=== PATIENT | male | born 1970 | race African-American/Black ===

== ENCOUNTER 2017-08-30 22:20 | Emergency (ER) | payer MEDICAID ==
[~2017-08-30] VITALS: Ht 175.3 cm; Wt 73.0 kg
[2017-08-30] MEDS ORDERED: IPRATROPIUM BROMIDE (0.02%) 0.5MG/2.5ML NEB HHN STA (22:39)
[2017-08-30] MEDS ORDERED: PREDNISONE 20MG TABLET PO STA (22:39)
[2017-08-30] MEDS: ALBUTEROL (0.083%) 2.5MG/3ML NEB HHN SCH ×3 (22:56→23:24)
[2017-08-31 00:10] VITALS: BP 121/68
== END 2017-08-31 02:02 | disposition home or self-care (01) ==
LOC: ER 22:35
DX: J44.1 Chronic obstructive pulmonary disease with (acute) exacerbation (principal); F31.9 Bipolar disorder, unspecified; F17.210 Nicotine dependence, cigarettes, uncomplicated; Z71.6 Tobacco abuse counseling
CPT/HCPCS: 71045; 83036; 94640; 99285; J7512; J7611; Z7610

== ENCOUNTER 2021-02-15 03:46 | Emergency (ER) | payer OTHER, MEDICAID ==
[~2021-02-15] VITALS: Ht 182.9 cm; Wt 81.0 kg
[2021-02-15] MEDS ORDERED: ALBUTEROL (0.083%) 2.5MG/3ML NEB HHN STA (04:49)
[2021-02-15] MEDS ORDERED: PREDNISONE 20MG TABLET PO STA (04:49)
[2021-02-15 05:11] LABS: HEMATOCRIT. 50.7 % (42.0-52.0); HEMOGLOBIN. 17.7 g/dL (14.0-18.0); MEAN CORPUSCULAR HEMOGLOBIN 30.1 pg (28.0-32.0); MEAN CORPUSCULAR VOLUME 86.4 fL (80.0-94.0); PLATELET 265 x1000/uL (130-400); RED BLOOD CELL COUNT 5.86 mill/uL (4.7-6.1); RED CELL DISTRIBUTION WIDTH 13.7 % (11.6-14.6)
[2021-02-15 05:12] LABS: CHLORIDE 103 mEq/L (98-107)
[2021-02-15] MEDS ORDERED: IPRA4AER INH (05:33)
[2021-02-15] MEDS ORDERED: P50 MT (05:34)
[2021-02-15] MEDS ORDERED: AZIT250T12 MT (05:40)
[2021-02-15] MEDS ORDERED: ALBU6.7H9 INH (05:40)
[2021-02-15] MEDS ORDERED: SODIUM CHLORIDE 0.9% 500 ML IV ONE (05:45)
[2021-02-15 05:54] LABS: PLATELET ESTIMATE NORMAL
[2021-02-15 07:00] VITALS: BP 119/83
== END 2021-02-15 07:39 | disposition home or self-care (01) ==
LOC: ER 03:46
DX: J44.1 Chronic obstructive pulmonary disease with (acute) exacerbation (principal); E87.5 Hyperkalemia; Z20.822 Contact with and (suspected) exposure to COVID-19; D72.829 Elevated white blood cell count, unspecified
CPT/HCPCS: 36415; 71045; 80053; 85025; 93005; 96360; 99285; C9803; J7040; J7512; U0003; U0005

== ENCOUNTER 2022-06-08 05:31 | Emergency (ER) | payer MEDICAID, OTHER ==
[~2022-06-08] VITALS: Ht 185.4 cm; Wt 75.0 kg
[~2022-06-08 05:31] MED LIST: ALBU6.7H3 INH; AZIT250T12 MT; IPRA4AER INH; P50 MT
[2022-06-08] MEDS ORDERED: HYDROCODONE/ACETAMINOPHEN 10/325MG TABLET PO ONE (09:30)
[2022-06-08 09:48] VITALS: BP 128/80
[2022-06-08] MEDS ORDERED: IBUP-2030 MT (10:33)
== END 2022-06-08 11:35 | disposition home or self-care (01) ==
LOC: ER 05:31
DX: S62.391A Other fracture of second metacarpal bone, left hand, initial encounter for closed fracture (principal); Y04.0XXA Assault by unarmed brawl or fight, initial encounter; Y93.89 Activity, other specified; Y92.89 Other specified places as the place of occurrence of the external cause
CPT/HCPCS: 29125; 73130; 99283

== ENCOUNTER 2023-02-01 22:02 | Emergency (ER) | payer OTHER ==
[~2023-02-01] VITALS: Ht 182.9 cm; Wt 65.5 kg
[~2023-02-01 22:02] MED LIST changes: +ALBU18HF2 IH; +FLUT1DIS3 INH; +IBUP-2030 MT; +P20 MT
[2023-02-01 22:25] VITALS: TEMP 98.4; O2SAT 96
[2023-02-02] MEDS ORDERED: P50 MT (01:53)
[2023-02-02] MEDS ORDERED: ALBU6.7H15 INH (01:53)
[2023-02-02] MEDS ORDERED: AMOX1TAB16 MT (01:53)
[2023-02-02] MEDS ORDERED: AZIT250T12 MT (01:53)
[2023-02-02 02:08] VITALS: BP 107/79; PULSE 85; RESP 18
== END 2023-02-02 02:11 | disposition home or self-care (01) ==
LOC: ER 22:02
DX: R05.9 Cough, unspecified (principal); J45.909 Unspecified asthma, uncomplicated; Z79.899 Other long term (current) drug therapy
CPT/HCPCS: 71045; 99284

== ENCOUNTER 2023-04-24 08:30 | Emergency (ER) | payer OTHER ==
[~2023-04-24] VITALS: Ht 177.8 cm; Wt 78.0 kg
[~2023-04-24 08:30] MED LIST changes: -ALBU18HF2 IH; +ALBU6.7H15 INH; -ALBU6.7H3 INH; -AZIT250T12 MT; +AZIT500T8 MT; -IBUP-2030 MT; -P50 MT
[2023-04-24 08:33] VITALS: BP 139/80; PULSE 74; RESP 17; TEMP 98.7; O2SAT 100
[2023-04-24 09:32] LABS: BASOPHILS % 0.7 % (0.0-2.0); HEMATOCRIT. 41.5 % (42.0-52.0); HEMOGLOBIN. 13.8 g/dL (14.0-18.0); LYMPHOCYTES % 13.6 % (20.0-50.0); MEAN CORPUSCULAR HEMOGLOBIN 29.3 pg (28.0-32.0); MEAN CORPUSCULAR HGB CONC 33.3 g/dL (31.0-37.0); MEAN CORPUSCULAR VOLUME 88.1 fL (80.0-94.0); MEAN PLATELET VOLUME 8.7 fl (7.4-10.4); MONOCYTES % 8.5 % (2.0-8.0); NEUTROPHILS % 75.2 % (40.0-76.0); PLATELET 282 x1000/uL (130-400); RED BLOOD CELL COUNT 4.71 mill/uL (4.7-6.1); RED CELL DISTRIBUTION WIDTH 15.1 % (11.6-14.6); WHITE BLOOD COUNT 9.1 x1000/uL (4.5-11.0)
[2023-04-24 09:48] LABS: ALANINE AMINOTRANSFERASE 20 IU/L (10-49); ALBUMIN 4.3 g/dL (3.2-4.8); ASPARTATE AMINOTRANSFERASE 27 IU/L (<34); BILIRUBIN TOTAL 0.3 mg/dL (0.1-1.0); CALCIUM 9.3 mg/dL (8.7-10.4); CARBON DIOXIDE 23 mEq/L (21-32); CHLORIDE 104 mEq/L (98-107); CREATININE 0.9 mg/dL (0.6-1.3); GLUCOSE 112 mg/dL (70-105); POTASSIUM 3.8 mEq/L (3.5-5.1); PROTEIN TOTAL 7.8 g/dL (6.0-8.3); SODIUM 140 mEq/L (136-145); UREA NITROGEN BLOOD 11 mg/dL (9-23)
[2023-04-24 09:52] LABS: TROPONIN I HIGH SENSITIVITY < 4 ng/L (3.0-53)
[2023-04-24] MEDS ORDERED: B50 MT (11:26)
== END 2023-04-24 11:54 | disposition home or self-care (01) ==
LOC: ER 08:56
DX: R07.89 Other chest pain (principal); J45.909 Unspecified asthma, uncomplicated; I50.9 Heart failure, unspecified; Z79.899 Other long term (current) drug therapy
CPT/HCPCS: 36415; 71045; 80053; 83880; 84484; 85025; 93005; 99285

== ENCOUNTER 2023-06-30 18:38 | Emergency (ER) | payer OTHER ==
[~2023-06-30] VITALS: Ht 182.9 cm; Wt 74.0 kg
[~2023-06-30 18:38] MED LIST changes: +B50 MT
[2023-06-30 18:48] VITALS: O2SAT 98
[2023-06-30] MEDS ORDERED: IBUP-2029 PO (20:03)
[2023-06-30] MEDS: KETOROLAC 60MG/2ML VIAL IM NR (20:16)
[2023-06-30 20:56] VITALS: BP 115/55; PULSE 88; RESP 18; TEMP 98
== END 2023-06-30 20:58 | disposition home or self-care (01) ==
LOC: ER 18:45
DX: M79.641 Pain in right hand (principal); S62.304A Unspecified fracture of fourth metacarpal bone, right hand, initial encounter for closed fracture; J45.909 Unspecified asthma, uncomplicated; Y04.0XXA Assault by unarmed brawl or fight, initial encounter; Y93.89 Activity, other specified; Y92.89 Other specified places as the place of occurrence of the external cause; Y99.8 Other external cause status
CPT/HCPCS: 73130; 29125; 96372; 99283; J1885; Z7610

== ENCOUNTER 2024-06-17 15:10 | Emergency (ER) | payer MEDICAID, OTHER ==
[~2024-06-17] VITALS: Ht 175.3 cm; Wt 74.0 kg
[~2024-06-17 15:10] MED LIST changes: +IBUP-2029 PO
[2024-06-17 15:14] VITALS: BP 138/72; PULSE 94; RESP 20; TEMP 36.7; O2SAT 99
[2024-06-17] MEDS: ACETAMINOPHEN 325MG TABLET PO ONE (15:33)
[2024-06-17] MEDS ORDERED: ACET-2708 MT (16:45)
[2024-06-17] MEDS ORDERED: IBUP-2029 MT (16:45)
[2024-06-17] MEDS: BACITRACIN ZINC OINT UDPKT TOP ONE (17:04)
== END 2024-06-17 17:33 | disposition home or self-care (01) ==
LOC: ER 15:10
DX: M25.572 Pain in left ankle and joints of left foot (principal); I50.9 Heart failure, unspecified; J45.909 Unspecified asthma, uncomplicated; Z79.51 Long term (current) use of inhaled steroids
CPT/HCPCS: 73600; 99283; Z7610

== ENCOUNTER 2024-06-21 17:02 | Emergency (ER) | payer MEDICAID ==
[~2024-06-21] VITALS: Ht 177.8 cm; Wt 82.0 kg
[~2024-06-21 17:02] MED LIST changes: +ACET-2708 MT; +IBUP-2029 MT
[2024-06-21 17:06] VITALS: O2SAT 96
[2024-06-21 17:22] VITALS: BP 128/90; PULSE 90; RESP 12; TEMP 36.9; O2SAT 96
== END 2024-06-21 19:12 | disposition home or self-care (01) ==
LOC: ER 17:02
DX: F16.10 Hallucinogen abuse, uncomplicated (principal); I10 Essential (primary) hypertension; Z79.51 Long term (current) use of inhaled steroids; Z79.899 Other long term (current) drug therapy
CPT/HCPCS: 99283

== ENCOUNTER 2025-03-03 21:58 | Emergency (ER) | payer OTHER ==
[~2025-03-03] VITALS: Ht 177.8 cm; Wt 75.0 kg
[~2025-03-03 21:58] MED LIST changes: -B50 MT; +DIPH50CA42 MT; +IBUP-1455 MT; +IBUP-1455 PO; -IBUP-2029 MT; -IBUP-2029 PO
[2025-03-03 22:00] VITALS: PULSE 66; RESP 17; O2SAT 100
[2025-03-03 22:03] VITALS: BP 132/97; TEMP 36.7; O2SAT 100
[2025-03-03 22:49] LABS: BASOPHILS % 1.1 % (0.0-2.0); EOSINOPHILS % 4.3 % (0.0-5.0); HEMATOCRIT. 41.5 % (42.0-52.0); HEMOGLOBIN. 14.4 g/dL (14.0-18.0); LYMPHOCYTES % 27.9 % (20.0-50.0); MEAN PLATELET VOLUME 8.8 fl (7.4-10.4); MONOCYTES % 5.6 % (2.0-8.0); NEUTROPHILS % 61.1 % (40.0-76.0); PLATELET 245 x1000/uL (130-400); RED BLOOD CELL COUNT 4.81 mill/uL (4.7-6.1); RED CELL DISTRIBUTION WIDTH 13.9 % (11.6-14.6)
[2025-03-03 23:02] LABS: CREATININE 0.9 mg/dL (0.6-1.3); UREA NITROGEN BLOOD 12 mg/dL (9-23)
[2025-03-03 23:03] LABS: TROPONIN I HIGH SENSITIVITY < 4 ng/L (3.0-53)
[2025-03-03] MEDS ORDERED: FLUT1DIS3 INH (23:33)
[2025-03-03] MEDS ORDERED: P20 MT (23:33)
== END 2025-03-04 01:06 | disposition home or self-care (01) ==
LOC: ER 21:58
DX: J44.1 Chronic obstructive pulmonary disease with (acute) exacerbation (principal); R07.89 Other chest pain; F17.210 Nicotine dependence, cigarettes, uncomplicated; I11.0 Hypertensive heart disease with heart failure; I50.9 Heart failure, unspecified; Z79.899 Other long term (current) drug therapy
CPT/HCPCS: 36415; 71045; 80048; 84484; 85025; 93005; 99285